=== PATIENT | female | born 1965 | race American Indian/Alaskan Native ===

== ENCOUNTER 2022-02-27 06:40 | Emergency (ER) | payer BC ==
[2022-02-27] MEDS ORDERED: ACETAMINOPHEN W/CODEINE 300-30 MG TAB PO ONE (08:54)
[2022-02-27] MEDS ORDERED: KETOROLAC 10 MG TAB PO ONE (08:54)
--- NOTE | 2022-02-27 10:58 | Vascular Lab Report ---
DUPLEX DOPPLER LOWER EXTREMITY VEINS, LEFT INDICATION: leg pain. TECHNIQUE: Duplex doppler imaging was performed through the veins of the left lower extremity using venous compression and other maneuvers. COMPARISON: No relevant prior imaging study available. FINDINGS: Left Common femoral vein: Negative. Left Superficial femoral vein: Negative. Left Popliteal vein: Negative. Left Calf veins: Negative. Additional findings: None. IMPRESSION: No sonographic evidence for DVT in the left lower extremity. Signer Name: Will Scales Jr, MD Signed: 02/27/2022 10:54 AM Workstation Name: [id number]
--- NOTE | 2022-02-27 11:21 | Emergency Department Report ---
<REGINO ADHIKARI - Last Filed: 03/03/22 20:55> ED Extremity Problem HPI - General Chief complaint: Extremity Injury, Lower Stated complaint: LT LEG PAIN Time Seen by Provider: 02/27/22 08:34 Source: patient Mode of arrival: Ambulatory Limitations: No Limitations - History of Present Illness Initial comments: 56-year-old black female with a past medical history of diabetes presents to the emergency department for evaluation of left leg pain since Thursday. She denies injury or trauma and states that pain has been persistent pain to the back of her left thigh that she rates as a 6 out of 10. She states that pain is worse with ambulation. She denies chest pain, shortness of breath, and hemoptysis. MD Complaint: extremity pain -: Gradual, days(s) (5) Location: left, lower extremity History of Same: No -: No myalgia, No arthralgia, No fever, No associated dyspnea, No associated chest pain Severity scale (0 -10): 6 Quality: aching Consistency: constant Worsens with: weight bearing Associated Symptoms: denies: chest pain, shortness of breath, fever, myalgias, arthralgias, rash - Related Data Previous Rx's Medication Instructions Recorded Last Taken Type Naproxen [Naprosyn] 500 mg PO BID #14 tab 02/27/22 Unknown Rx Allergies Allergy/AdvReac Type Severity Reaction Status Date / Time No Known Allergies Allergy Unverified 02/27/22 07:23 ED Review of Systems Comment: All other systems reviewed and negative Constitutional: denies: chills, fever ENT: denies: congestion Respiratory: denies: shortness of breath Cardiovascular: denies: chest pain, palpitations Gastrointestinal: abdominal pain. denies: nausea, vomiting Musculoskeletal: denies: back pain Neurological: denies: headache, weakness ED Past Medical Hx - Past Medical History Previous Medical History?: Yes - Medications Home Medications: Home Medications Medication Instructions Recorded Confirmed Last Taken Type Naproxen [Naprosyn] 500 mg PO BID #14 tab 02/27/22 Unknown Rx ED Physical Exam - General Limitations: No Limitations General appearance: alert, in no apparent distress - Head Head exam: Present: atraumatic, normocephalic - Eye Eye exam: Present: normal appearance. Absent: conjunctival injection - Neck Neck exam: Present: normal inspection, full ROM. Absent: tenderness, lymphadenopathy - Respiratory Respiratory exam: Present: normal lung sounds bilaterally. Absent: respiratory distress, wheezes, rales, rhonchi, stridor, chest wall tenderness - Cardiovascular Cardiovascular Exam: Present: regular rate, normal heart sounds - GI/Abdominal GI/Abdominal exam: Present: soft, normal bowel sounds. Absent: distended, tenderness - Extremities Exam Extremities exam: Present: normal inspection, full ROM, normal capillary refill. Absent: tenderness, pedal edema, joint swelling, calf tenderness - Back Exam Back exam: Present: normal inspection. Absent: CVA tenderness (R), CVA tenderness (L) - Neurological Exam Neurological exam: Present: alert, oriented X3, CN II-XII intact, normal gait - Psychiatric Psychiatric exam: Present: normal affect, normal mood - Skin Skin exam: Present: warm, dry, intact, normal color ED Course - Reevaluation(s) Reevaluation #1: 02/27/22 11:20 Left leg pain slightly improved. ED Medical Decision Making - Radiology Data Radiology results: report reviewed, image reviewed Left leg venous doppler US: FINDINGS: Left Common femoral vein: Negative. Left Superficial femoral vein: Negative. Left Popliteal vein: Negative. Left Calf veins: Negative. Additional findings: None. IMPRESSION: No sonographic evidence for DVT in the left lower extremity. - Medical Decision Making 56-year-old black female with a past medical history of diabetes presents to the emergency department for evaluation of left leg pain since Thursday. She denies injury or trauma and states that pain has been persistent pain to the back of her left thigh that she rates as a 6 out of 10. She states that pain is worse with ambulation. She denies chest pain, shortness of breath, and hemoptysis. Physical exam unremarkable. US negative for DVT. Pain improved after medication. Patient will be discharged home to follow up with her pcp for further evalution and management and return to ed as needed. She verbalized understanding of and agreement with plan of care. ED Disposition Clinical Impression: Left leg pain Disposition: HOME / SELF CARE / HOMELESS Is pt being admited?: No Does the pt Need Aspirin: No Condition: Stable Instructions: How to Use Cold Therapy, [id number] Additional Instructions: Take medications as prescribed. Follow-up with your primary care provider for further evaluation and management. Return to the emergency department as needed. Prescriptions: Naproxen [Naprosyn] 500 mg PO BID #14 tab Referrals: DE DESAI MD [Staff Physician] - 3-5 Days Time of Disposition: 11:22 <LESLIE SLADE - Last Filed: 03/04/22 14:00> ED Review of Systems ROS: Stated complaint: LT LEG PAIN Other details as noted in HPI ED Course Vital Signs 02/27/22 02/27/22 07:21 11:53 Temperature 98.5 F 98.6 F Pulse Rate 81 88 Respiratory 17 20 Rate Blood Pressure 161/86 160/87 [Left] O2 Sat by Pulse 99 99 Oximetry ED Medical Decision Making - Medical Decision Making Patient was managed independently by the mid level below , I was available for consult but i wasn't directly involved in the care of this patient Critical care attestation.: If time is entered above; I have spent that time in minutes in the direct care of this critically ill patient, excluding procedure time. ED Disposition Is pt being admited?: No Does the pt Need Aspirin: No
[2022-02-27 11:54] VITALS: BP 160/87
== END 2022-02-27 11:55 | disposition home or self-care (01) ==
LOC: ED 06:40
DX: M79.605 Pain in left leg (principal)
CPT/HCPCS: 99283